=== PATIENT | male | born 1975 ===

== ENCOUNTER 2019-11-17 06:58 | Day surgery (SDC) | payer OTHER ==
[2019-11-16 15:09] VITALS: BMI 29.4
[2019-11-17 09:59] VITALS: BP 134/80; PULSE 62; TEMP 98.2
--- NOTE | 2019-11-19 18:57 | PATH ---
Surgical Pathology Report Patient Name: FLORIDALMA ELY [facility]. Rec. #: [id number] /Age/Gender: 1975 (Age: 44) / M Account: [id number] Location: [facility]-ENDOSCOPY Taken: 11/17/2019 Received: 11/17/2019 Reported: 11/19/2019 Physicians: LUIS CARLOS BOYLE Specimen(s) Received STOMACH Clinical History History of GERD Postoperative diagnosis: Normal EGD Final Diagnosis STOMACH BIOPSY: GASTRIC MUCOSA WITH ACTIVE CHRONIC GASTRITIS. IMMUNOSTAIN FOR H. PYLORI IS POSITIVE. NEGATIVE FOR INTESTINAL METAPLASIA. Comment: Immunostain for H. Pylori performed at [place], [place] ([id number]) and interpreted at [facility] Positive and negative controls (internal if applicable) show appropriate results. Electronically Signed Yesenia Watt M.D. Gross Description Received in formalin, labeled "biopsy stomach" are 3 jolley, irregular portions of soft tissue ranging from 0.2-0.6 cm. in greatest dimension. The specimens are submitted in toto in one cassette. /11/17/2019 [facility]2019
== END 2019-11-17 08:50 | disposition home or self-care (01) ==
LOC: JASU-ENDO 06:58
PROVIDERS: ATTEND Internal Medicine Gastroenterology
PROC: 0DB68ZX Excision of Stomach, Via Natural or Artificial Opening Endoscopic, Diagnostic (ICD-10-PCS; principal; 2019-11-17 08:00)
DX: K29.50 Unspecified chronic gastritis without bleeding (principal); B96.81 Helicobacter pylori [H. pylori] as the cause of diseases classified elsewhere
CPT/HCPCS: 88305-TC